=== PATIENT | female | born 1960 | race Caucasian/White ===

== ENCOUNTER 2020-10-27 06:15 | Inpatient (IN) | payer OTHER, SELFPAY ==
[~2020-10-27] VITALS: Ht 154.9 cm; Wt 74.8 kg
[2020-10-27] MEDS ORDERED: ALVIMOPAN 12 MG CAPSULE PO ONE ×2 (06:41→07:00)
[2020-10-27] MEDS ORDERED: cefOXitin 2 GM IVPB PREMIX 50 ML IV ONE (07:00)
[2020-10-27] MEDS ORDERED: PROPOFOL 200MG/ 20ML VIAL (DIPRIVAN) IV ONE (07:32)
[2020-10-27] MEDS ORDERED: ROCURONIUM BROMIDE 10 MG/ML (ZEMURON) IV ONE (07:32)
[2020-10-27] MEDS ORDERED: SUGAMMADEX SODIUM 200 MG/2 ML VIAL IV ONE (07:32)
[2020-10-27] MEDS ORDERED: LR 1,000 ML IV.SOLN IV ONE (07:32)
[2020-10-27] MEDS ORDERED: DESFLURANE 15 MIN GAS INH ONE (07:32)
[2020-10-27] MEDS ORDERED: MIDAZOLAM HCL 5 MG/5 ML VIAL IVP ONE (07:32)
[2020-10-27] MEDS ORDERED: KETOROLAC TROMETHAMINE 30 MG VIAL IVP ONE (07:32)
[2020-10-27] MEDS ORDERED: PHENYLEPHRINE HCL 10 MG/ML VIAL (NEOSYNEPHRINE) IV ONE (07:32)
[2020-10-27] MEDS ORDERED: LIDOCAINE 1% 10 MG/ML, 20 ML MDV INJ ONE (07:32)
[2020-10-27] MEDS ORDERED: BUPIVACAINE /PF 0.25% 30 ML VIAL INJ ONE (07:32)
[2020-10-27] MEDS ORDERED: METOPROLOL TARTRATE 5 MG/5 ML VIAL IVP ONE (07:32)
[2020-10-27] MEDS ORDERED: fentaNYL CITRATE 250 MCG/5 ML AMP IV ONE (07:32)
[2020-10-27] MEDS ORDERED: NS 100 ML BAG IV ONE (07:32)
[2020-10-27] MEDS ORDERED: NS 1000 ML IV.SOLN IV ONE (07:32)
[2020-10-27] MEDS ORDERED: BUPR300T55 PO (08:31)
[2020-10-27] MEDS ORDERED: LOSA100T3 PO (08:31)
[2020-10-27] MEDS ORDERED: NPH,100V2 SQ (08:31)
[2020-10-27] MEDS ORDERED: ACET325T53 PO (08:31)
[2020-10-27] MEDS ORDERED: MULT-1164 PO (08:31)
[2020-10-27] MEDS ORDERED: SSREG SUBCUT (08:32)
[2020-10-27] MEDS ORDERED: ETAN50DI2 SUBCUT (08:32)
[2020-10-27] MEDS ORDERED: CYCL-10 PO (08:32)
[2020-10-27] MEDS ORDERED: LABETALOL 100 MG/ 20ML VIAL IVP PRN (08:45)
[2020-10-27] MEDS ORDERED: METOCLOPRAMIDE HCL 10 MG/2 ML VIAL IVP PRN (08:45)
[2020-10-27] MEDS ORDERED: ONDANSETRON HCL 4 MG/2 ML VIAL IVP PRN (08:45)
[2020-10-27] MEDS: NACL 0.9% 1,000 ML IV SCH ×2 (08:45→17:05)
[2020-10-27] MEDS ORDERED: HYDROmorphone 1 INJ. 1 MG/ML CARTRIDGE IVP PRN ×2 (08:45)
[2020-10-27] MEDS ORDERED: hydrALAZINE HCL 20 MG/ML VIAL IVP PRN (08:45)
[2020-10-27] MEDS ORDERED: MIDAZOLAM HCL 2 MG/2 ML VIAL (VERSED) IVP PRN (08:45)
[2020-10-27] MEDS ORDERED: MEPERIDINE HCL/PF 25 MG/ML DISP.SYRIN IVP PRN (08:45)
[2020-10-27] MEDS ORDERED: BUPIVACAINE LIPOSOME/PF 266 MG/20 ML VIAL INFIL ONE (10:55)
[2020-10-27] MEDS ORDERED: HYDROcodone/ACETAMIN 5-325 MG TAB (NORCO/ VICODIN) PO PRN (11:45)
[2020-10-27] MEDS ORDERED: NALOXONE HCL 0.4 MG/ML AMP (NARCAN) IVP PRN ×3 (11:45)
[2020-10-27] MEDS ORDERED: ACETAMINOPHEN 325 MG TABLET PO PRN (11:45)
[2020-10-27] MEDS: MIDAZOLAM HCL 2 MG/2 ML VIAL (VERSED) ONE ×2 (12:08→12:10)
[2020-10-27 12:24] LABS: HEMATOCRIT 37.7 % (36-48); HEMOGLOBIN 12.4 g/dL (12.0-16.0)
[2020-10-27 12:46] LABS: CREATININE 1.45 mg/dL (0.55-1.30); POTASSIUM 3.7 mmol/L (3.5-5.1)
[2020-10-27 13:07] VITALS: BP_SYST 117
[2020-10-27] MEDS: ONDANSETRON HCL 4 MG/2 ML VIAL IVP PRN ×2 (13:21→21:22)
[2020-10-27] MEDS: D5/0.45 NS 1,000 ML IV SCH ×2 (13:32→22:51)
[2020-10-27 13:37] VITALS: BP_SYST 133
[2020-10-27 16:09] VITALS: BP_SYST 159
[2020-10-27] MEDS: HYDROmorphone 1 INJ. 1 MG/ML CARTRIDGE IVP PRN ×2 (16:23→22:47)
[2020-10-27] MEDS: ALVIMOPAN 12 MG CAPSULE PO SCH (21:00)
[2020-10-27 21:09] VITALS: BP_SYST 162
[2020-10-27] MEDS: cefOXitin SODIUM 2 GM in D5W 100 ML IV SCH (21:15)
[2020-10-27] MEDS: FAMOTIDINE PF 20 MG/2 ML VIAL IVP SCH (21:15)
[2020-10-28] MEDS: INSULIN REGULAR, HUMAN 100 UNITS/ML, 10 ML VIAL (humuLIN R) SUBCUT PRN ×4 (00:56→17:29)
[2020-10-28 01:09] VITALS: BP_SYST 107
[2020-10-28] MEDS: NACL 0.9% 1,000 ML IV SCH ×3 (01:25→14:37)
[2020-10-28] MEDS: ONDANSETRON HCL 4 MG/2 ML VIAL IVP PRN ×3 (05:36→22:37)
[2020-10-28] MEDS: HYDROmorphone 1 INJ. 1 MG/ML CARTRIDGE IVP PRN ×3 (05:37→16:18)
[2020-10-28 06:27] LABS: BASOPHILS % (AUTO) 0.3 % (0.0-2.0); HEMATOCRIT 37.1 % (36-48); LYMPHOCYTES # (AUTO) 1.4 K/uL (1.0-5.5); LYMPHOCYTES % (AUTO) 9.3 % (20.5-51.5); MEAN CORPUSCULAR HEMOGLOBIN 30 pg (27-31); MEAN CORPUSCULAR HGB CONC 33 % (32-36); MEAN CORPUSCULAR VOLUME 92 fL (79.0-98.0); MONOCYTES # (AUTO) 1.3 K/uL (0.0-1.0); MONOCYTES % (AUTO) 8.5 % (1.7-9.3); NEUTROPHILS # (AUTO) 12.5 K/uL (1.8-7.7); NEUTROPHILS % (AUTO) 81.9 % (40.0-70.0); PLATELET COUNT (AUTO) 291 K/uL (130-430); RED BLOOD CELL COUNT(AUTO) 4.03 MIL/uL (4.2-6.2); RED CELL DISTRIBUTION WIDTH 13.2 % (9.0-15.0); WHITE BLOOD COUNT (AUTO) 15.3 K/uL (4.8-10.8)
[2020-10-28 06:37] LABS: CALCIUM 8.1 mg/dL (8.4-11.0); CREATININE 1.18 mg/dL (0.55-1.30); TOTAL BILIRUBIN 0.7 mg/dL (0.0-1.0)
[2020-10-28 08:00] VITALS: BP_SYST 127
[2020-10-28] MEDS: FAMOTIDINE PF 20 MG/2 ML VIAL IVP SCH ×2 (08:44→21:50)
[2020-10-28] MEDS: cefOXitin SODIUM 2 GM in D5W 100 ML IV SCH (08:44)
[2020-10-28] MEDS: ENOXAPARIN SODIUM 30 MG/0.3 ML SYRINGE SUBCUT SCH (08:48)
[2020-10-28] MEDS: D5/0.45 NS 1,000 ML IV SCH ×2 (08:49→21:50)
[2020-10-28] MEDS: ALVIMOPAN 12 MG CAPSULE PO SCH ×2 (09:26→21:49)
[2020-10-28 12:10] VITALS: BP_SYST 111
[2020-10-28 16:10] VITALS: BP_SYST 132
[2020-10-28] MEDS: METOCLOPRAMIDE HCL 10 MG/2 ML VIAL IVP SCH (17:26)
[2020-10-28 20:00] VITALS: BP_SYST 120
[2020-10-28] MEDS: HYDROcodone/ACETAMIN 5-325 MG TAB (NORCO/ VICODIN) PO PRN (22:37)
[2020-10-29] MEDS: METOCLOPRAMIDE HCL 10 MG/2 ML VIAL IVP SCH ×4 (00:11→17:10)
[2020-10-29] MEDS: INSULIN REGULAR, HUMAN 100 UNITS/ML, 10 ML VIAL (humuLIN R) SUBCUT PRN ×4 (00:15→18:04)
[2020-10-29 00:25] VITALS: BP_SYST 123
[2020-10-29] MEDS: NACL 0.9% 1,000 ML IV SCH ×2 (02:25→10:45)
[2020-10-29 07:58] VITALS: BP_SYST 114
[2020-10-29] MEDS: ALVIMOPAN 12 MG CAPSULE PO SCH (08:43)
[2020-10-29] MEDS: FAMOTIDINE PF 20 MG/2 ML VIAL IVP SCH (08:43)
[2020-10-29] MEDS: HYDROcodone/ACETAMIN 5-325 MG TAB (NORCO/ VICODIN) PO PRN ×2 (08:44→18:01)
[2020-10-29] MEDS: ENOXAPARIN SODIUM 30 MG/0.3 ML SYRINGE SUBCUT SCH (08:47)
[2020-10-29] MEDS: D5/0.45 NS 1,000 ML IV SCH (11:38)
[2020-10-29 12:06] VITALS: BP_SYST 143
[2020-10-29 16:06] VITALS: BP_SYST 140
[2020-10-29 17:32] VITALS: BP_SYST 110
== END 2020-10-29 18:46 | disposition home or self-care (01) | DRG 330 ==
LOC: SMU 06:15 → EDSTATUS 07:30 → SMU 08:46
PROVIDERS: ADMIT Colon & Rectal Surgery; ATTEND Colon & Rectal Surgery
PROC: 0DNN4ZZ Release Sigmoid Colon, Percutaneous Endoscopic Approach (ICD-10-PCS; 2020-10-27)
PROC: 0DNU0ZZ Release Omentum, Open Approach (ICD-10-PCS; 2020-10-27)
PROC: 0DJD4ZZ Inspection of Lower Intestinal Tract, Percutaneous Endoscopic Approach (ICD-10-PCS; 2020-10-27)
PROC: 0DNL4ZZ Release Transverse Colon, Percutaneous Endoscopic Approach (ICD-10-PCS; 2020-10-27)
PROC: 0DBP4ZZ Excision of Rectum, Percutaneous Endoscopic Approach (ICD-10-PCS; 2020-10-27)
PROC: 3E0T3BZ Introduction of Anesthetic Agent into Peripheral Nerves and Plexi, Percutaneous Approach (ICD-10-PCS; 2020-10-27)
PROC: 0DBN4ZZ Excision of Sigmoid Colon, Percutaneous Endoscopic Approach (ICD-10-PCS; principal; 2020-10-27 07:30)
DX: N82.3 Fistula of vagina to large intestine (principal); E44.1 Mild protein-calorie malnutrition; N18.30 Chronic kidney disease, stage 3 unspecified; E11.22 Type 2 diabetes mellitus with diabetic chronic kidney disease; Z20.822 Contact with and (suspected) exposure to COVID-19; I12.9 Hypertensive chronic kidney disease with stage 1 through stage 4 chronic kidney disease, or unspecified chronic kidney disease; K66.0 Peritoneal adhesions (postprocedural) (postinfection); Z68.31 Body mass index [BMI] 31.0-31.9, adult
CPT/HCPCS: 36415; 80048; 80053; 82948; 82962; 85018-TC; 85025; 86886; 86900; 86901; 87081; 88307; 97116-GP; 97530-GP; C1727; C9290; C9399; J0694; J1170; J1650; J1815; J1885; J2001; J2250; J2370; J2405; J2704; J2765; J3010; J3465; J3490; J7030; J7060; J7120; U0003

== ENCOUNTER 2020-11-12 10:14 | Emergency (ER) | payer OTHER, SELFPAY ==
[~2020-11-12] VITALS: Ht 154.9 cm; Wt 74.8 kg
[~2020-11-12 10:14] MED LIST: ACET325T53 PO; BUPR300T55 PO; CYCL-10 PO; ETAN50DI2 SUBCUT; LOSA100T3 PO; MULT-1164 PO; NPH,100V2 SQ; SSREG SUBCUT
[2020-11-12 10:15] VITALS: BP_SYST 166
[2020-11-12] MEDS ORDERED: ONDANSETRON HCL 4 MG/2 ML VIAL IVP ONE (11:00)
[2020-11-12] MEDS ORDERED: NACL 0.9% 1,000 ML IV ONE ×2 (11:00→12:30)
[2020-11-12 11:19] LABS: BASOPHILS % (AUTO) 0.3 % (0.0-2.0); EOSINOPHILS % (AUTO) 0.4 % (0.0-4.0); HEMATOCRIT 40.4 % (36-48); HEMOGLOBIN 13.7 g/dL (12.0-16.0); LYMPHOCYTES # (AUTO) 1.1 K/uL (1.0-5.5); LYMPHOCYTES % (AUTO) 8.4 % (20.5-51.5); MEAN CORPUSCULAR HEMOGLOBIN 30 pg (27-31); MEAN CORPUSCULAR HGB CONC 34 % (32-36); MEAN CORPUSCULAR VOLUME 89 fL (79.0-98.0); MONOCYTES # (AUTO) 0.3 K/uL (0.0-1.0); NEUTROPHILS # (AUTO) 11.2 K/uL (1.8-7.7); NEUTROPHILS % (AUTO) 88.9 % (40.0-70.0); PLATELET COUNT (AUTO) 534 K/uL (130-430); RED BLOOD CELL COUNT(AUTO) 4.54 MIL/uL (4.2-6.2); RED CELL DISTRIBUTION WIDTH 13.1 % (9.0-15.0); WHITE BLOOD COUNT (AUTO) 12.6 K/uL (4.8-10.8)
[2020-11-12 11:37] LABS: CALCIUM 9.9 mg/dL (8.4-11.0); CREATININE 1.15 mg/dL (0.55-1.30); POTASSIUM 3.7 mmol/L (3.5-5.1)
[2020-11-12 11:50] LABS: ALBUMIN 3.8 g/dL (3.4-4.8); TOTAL BILIRUBIN 0.6 mg/dL (0.0-1.0)
[2020-11-12 12:13] LABS: PROTHROMBIN TIME 10.5 SECS (9.5-12.5)
[2020-11-12 12:22] LABS: BILIRUBIN,URINE NEGATIVE (NEGATIVE); BLOOD, URINE NEGATIVE (NEGATIVE); CLARITY/URINE CLEAR (CLEAR); COLOR,URINE YELLOW (YELLOW); GLUCOSE,URINE 3+ (NEGATIVE); KETONES,URINE 1+ (NEGATIVE); LEUKOCYTE ESTERASE ,URINE NEGATIVE (NEGATIVE); NITRITE, URINE NEGATIVE (NEGATIVE); PH,URINE 8.5 (5.0-8.0); PROTEIN URINE NEGATIVE (NEGATIVE); UROBILINOGEN,URINE 0.2 (0.2-1.0)
[2020-11-12] MEDS ORDERED: VANCOMYCIN HCL 1,000 MG in NS 250 ML IV ONE (12:30)
[2020-11-12] MEDS ORDERED: MORPHINE 2 MG/ML INJ. SYRINGE IVP ONE (12:45)
[2020-11-12] MEDS ORDERED: VANCOMYCIN HCL 1000 MG/VIAL IV ONE (13:29)
[2020-11-12] MEDS ORDERED: LEVO750T45 PO (14:28)
[2020-11-12] MEDS ORDERED: POLY17PO4 PO (14:28)
[2020-11-12 14:40] VITALS: BP_SYST 154
== END 2020-11-12 14:40 | disposition home or self-care (01) ==
LOC: SED 10:14
DX: K59.00 Constipation, unspecified (principal); Z79.899 Other long term (current) drug therapy; Z79.4 Long term (current) use of insulin; Z88.1 Allergy status to other antibiotic agents
CPT/HCPCS: 36415; 71045; 74176; 76376; 80053; 81003; 83690; 84484; 85025; 85610; 85730; 87040; 87086; 93005; 96361; 96365; 96375; 99285; J2270; J2405; J3370; J7030

== ENCOUNTER 2020-11-14 05:36 | Inpatient (IN) | payer OTHER ==
[~2020-11-14] VITALS: Ht 152.4 cm; Wt 73.0 kg
[~2020-11-14 05:36] MED LIST changes: +LEVO750T45 PO; +POLY17PO4 PO
[2020-11-14 05:50] VITALS: BP_SYST 135
[2020-11-14] MEDS ORDERED: NACL 0.9% 1,000 ML IV ONE ×2 (06:00→07:30)
[2020-11-14] MEDS ORDERED: ONDANSETRON HCL 4 MG/2 ML VIAL IVP ONE (06:00)
[2020-11-14] MEDS ORDERED: MORPHINE 4 MG INJ. 4 MG/ML VIAL IVP ONE (06:00)
[2020-11-14 06:35] LABS: CALCIUM 8.4 mg/dL (8.4-11.0); CREATININE 0.98 mg/dL (0.55-1.30)
[2020-11-14 06:39] LABS: BASOPHILS % (AUTO) 0.1 % (0.0-2.0); EOSINOPHILS % (AUTO) 0.1 % (0.0-4.0); HEMATOCRIT 38.4 % (36-48); HEMOGLOBIN 12.9 g/dL (12.0-16.0); LYMPHOCYTES # (AUTO) 1.7 K/uL (1.0-5.5); LYMPHOCYTES % (AUTO) 11.5 % (20.5-51.5); MEAN CORPUSCULAR HEMOGLOBIN 30 pg (27-31); MEAN CORPUSCULAR HGB CONC 34 % (32-36); MEAN CORPUSCULAR VOLUME 88 fL (79.0-98.0); MONOCYTES # (AUTO) 0.8 K/uL (0.0-1.0); MONOCYTES % (AUTO) 5.5 % (1.7-9.3); NEUTROPHILS # (AUTO) 12.3 K/uL (1.8-7.7); NEUTROPHILS % (AUTO) 82.8 % (40.0-70.0); PLATELET COUNT (AUTO) 447 K/uL (130-430); RED BLOOD CELL COUNT(AUTO) 4.35 MIL/uL (4.2-6.2); RED CELL DISTRIBUTION WIDTH 13.1 % (9.0-15.0); WHITE BLOOD COUNT (AUTO) 14.8 K/uL (4.8-10.8)
[2020-11-14 06:40] LABS: ALBUMIN 3.3 g/dL (3.4-4.8); TOTAL BILIRUBIN 0.8 mg/dL (0.0-1.0)
[2020-11-14] MEDS ORDERED: PIPERACILLIN/TAZO 3.375 GM in NS 50 ML IV ONE (06:45)
[2020-11-14] MEDS ORDERED: MAGNESIUM SULFATE 50 ML IV ONE (06:45)
[2020-11-14] MEDS ORDERED: KCL 20 mEq in 100 mL (PREMIX) 100 ML IV ONE ×2 (06:45→07:04)
[2020-11-14] MEDS ORDERED: PIPERACILLIN/TAZOBACTAM 3.375 GM/VIAL (ZOSYN) IV ONE (07:05)
[2020-11-14] MEDS ORDERED: D5NS 500 ML IV ONE (07:30)
[2020-11-14] MEDS ORDERED: MORPHINE 4 MG INJ. 4 MG/ML VIAL IVP PRN (07:45)
[2020-11-14] MEDS ORDERED: DEXTROSE 50% JECT 50 ML DISP.SYRIN IVP PRN (07:45)
[2020-11-14] MEDS ORDERED: METOCLOPRAMIDE HCL 10 MG/2 ML VIAL IVP PRN (07:45)
[2020-11-14] MEDS ORDERED: ONDANSETRON HCL 4 MG/2 ML VIAL IVP PRN (07:45)
[2020-11-14] MEDS ORDERED: hydrALAZINE HCL 20 MG/ML VIAL IVP PRN (07:45)
[2020-11-14] MEDS ORDERED: ACETAMINOPHEN 325 MG TABLET PO PRN (07:45)
[2020-11-14] MEDS ORDERED: MORPHINE 2 MG/ML INJ. SYRINGE IVP PRN (07:45)
[2020-11-14 08:00] VITALS: BP_SYST 156
[2020-11-14] MEDS: buPROPion HCL 150 MG XL TAB PO SCH (09:57)
[2020-11-14] MEDS: LOSARTAN POTASSIUM 50 MG TABLET (COZAAR) PO SCH (09:58)
[2020-11-14] MEDS ORDERED: MAGNESIUM CITRATE 300 ML ORAL SOLUTION NG ONE (10:15)
[2020-11-14 10:59] LABS: BILIRUBIN,URINE NEGATIVE (NEGATIVE); BLOOD, URINE NEGATIVE (NEGATIVE); CLARITY/URINE CLEAR (CLEAR); COLOR,URINE YELLOW (YELLOW); GLUCOSE,URINE 1+ (NEGATIVE); KETONES,URINE 1+ (NEGATIVE); LEUKOCYTE ESTERASE ,URINE NEGATIVE (NEGATIVE); NITRITE, URINE NEGATIVE (NEGATIVE); PH,URINE 7.5 (5.0-8.0); PROTEIN URINE NEGATIVE (NEGATIVE); UROBILINOGEN,URINE 0.2 (0.2-1.0)
[2020-11-14] MEDS ORDERED: POTASSIUM CHLORIDE 40 MEQ in NS 250 ML IV ONE (11:00)
[2020-11-14 11:22] LABS: RBC,URINE 0-3 /HPF (0-3); WBC,URINE 0-3 /HPF (0-3)
[2020-11-14 11:23] LABS: BACTERIA,URINE FEW /HPF (None Seen); MUCUS,URINE 1+ /LPF (None Seen)
[2020-11-14 11:25] VITALS: BP_SYST 136
[2020-11-14] MEDS: PIPERACILLIN/TAZO 3.375/DEX-IS 50 ML IV SCH ×2 (11:58→17:09)
[2020-11-14] MEDS: METOCLOPRAMIDE HCL 10 MG/2 ML VIAL IVP SCH ×2 (11:58→17:08)
[2020-11-14] MEDS: INSULIN REGULAR, HUMAN 100 UNITS/ML, 10 ML VIAL (humuLIN R) SUBCUT PRN ×2 (12:07→17:14)
[2020-11-14 15:18] VITALS: BP_SYST 144
[2020-11-14] MEDS ORDERED: MAGNESIUM CITRATE 300 ML ORAL SOLUTION PO ONE (19:45)
[2020-11-14 20:00] VITALS: BP_SYST 142
[2020-11-14] MEDS ORDERED: KCL 20 mEq in D5/0.45NS 1000mL 1,000 ML IV ONE (20:33)
[2020-11-14] MEDS: FAMOTIDINE PF 20 MG/2 ML VIAL IVP SCH (20:58)
[2020-11-14] MEDS: KCL 20 mEq in D5/0.45NS 1000mL 1,000 ML IV SCH (20:58)
[2020-11-14 23:59] VITALS: BP_SYST 158
[2020-11-15] MEDS: INSULIN REGULAR, HUMAN 100 UNITS/ML, 10 ML VIAL (humuLIN R) SUBCUT PRN ×3 (00:05→13:02)
[2020-11-15] MEDS: METOCLOPRAMIDE HCL 10 MG/2 ML VIAL IVP SCH ×4 (05:20→17:33)
[2020-11-15] MEDS: PIPERACILLIN/TAZO 3.375/DEX-IS 50 ML IV SCH ×4 (05:26→17:06)
[2020-11-15 07:54] VITALS: BP_SYST 125
[2020-11-15 08:00] VITALS: BP_SYST 125
[2020-11-15 08:06] LABS: ALBUMIN 2.9 g/dL (3.4-4.8); CALCIUM 8.1 mg/dL (8.4-11.0); CREATININE 0.95 mg/dL (0.55-1.30); POTASSIUM 3.2 mmol/L (3.5-5.1); TOTAL BILIRUBIN 0.7 mg/dL (0.0-1.0)
[2020-11-15 08:20] LABS: BASOPHILS # (AUTO) 0.1 K/uL (0.0-0.2); BASOPHILS % (AUTO) 0.6 % (0.0-2.0); EOSINOPHILS # (AUTO) 0.1 K/uL (0.0-0.4); EOSINOPHILS % (AUTO) 0.4 % (0.0-4.0); HEMATOCRIT 39.1 % (36-48); HEMOGLOBIN 12.8 g/dL (12.0-16.0); LYMPHOCYTES # (AUTO) 1.3 K/uL (1.0-5.5); LYMPHOCYTES % (AUTO) 7.5 % (20.5-51.5); MEAN CORPUSCULAR HEMOGLOBIN 29 pg (27-31); MEAN CORPUSCULAR HGB CONC 33 % (32-36); MEAN CORPUSCULAR VOLUME 89 fL (79.0-98.0); MONOCYTES # (AUTO) 1.2 K/uL (0.0-1.0); MONOCYTES % (AUTO) 6.5 % (1.7-9.3); NEUTROPHILS # (AUTO) 15.3 K/uL (1.8-7.7); PLATELET COUNT (AUTO) 441 K/uL (130-430); RED BLOOD CELL COUNT(AUTO) 4.38 MIL/uL (4.2-6.2); RED CELL DISTRIBUTION WIDTH 13.1 % (9.0-15.0)
[2020-11-15] MEDS: buPROPion HCL 150 MG XL TAB PO SCH (09:55)
[2020-11-15] MEDS: FAMOTIDINE PF 20 MG/2 ML VIAL IVP SCH ×2 (09:55→20:44)
[2020-11-15] MEDS: LOSARTAN POTASSIUM 50 MG TABLET (COZAAR) PO SCH (09:56)
[2020-11-15] MEDS: KCL 20 mEq in D5/0.45NS 1000mL 1,000 ML IV SCH ×2 (10:11→16:48)
[2020-11-15 12:11] VITALS: BP_SYST 131
[2020-11-15] MEDS ORDERED: LIDOCAINE 1% 10 MG/ML, 20 ML MDV SUBCUT ONE (14:15)
[2020-11-15] MEDS ORDERED: GOLYTELY / COLYTE SOLUTION 4 LITERS PO ONE (14:15)
[2020-11-15 16:09] VITALS: BP_SYST 125
[2020-11-15] MEDS ORDERED: POTASSIUM CHLORIDE 40 MEQ in NS 250 ML IV ONE (17:00)
[2020-11-16 00:06] VITALS: BP_SYST 138
[2020-11-16] MEDS: INSULIN REGULAR, HUMAN 100 UNITS/ML, 10 ML VIAL (humuLIN R) SUBCUT PRN ×5 (02:05→23:38)
[2020-11-16] MEDS: KCL 20 mEq in D5/0.45NS 1000mL 1,000 ML IV SCH ×3 (03:20→23:41)
[2020-11-16] MEDS: PIPERACILLIN/TAZO 3.375/DEX-IS 50 ML IV SCH ×5 (06:33→23:33)
[2020-11-16] MEDS: METOCLOPRAMIDE HCL 10 MG/2 ML VIAL IVP SCH ×5 (06:34→23:34)
[2020-11-16 06:46] LABS: BASOPHILS # (AUTO) 0.1 K/uL (0.0-0.2); BASOPHILS % (AUTO) 0.9 % (0.0-2.0); EOSINOPHILS # (AUTO) 0.2 K/uL (0.0-0.4); HEMATOCRIT 40.2 % (36-48); HEMOGLOBIN 13.1 g/dL (12.0-16.0); LYMPHOCYTES # (AUTO) 1.8 K/uL (1.0-5.5); MEAN CORPUSCULAR HEMOGLOBIN 29 pg (27-31); MEAN CORPUSCULAR HGB CONC 33 % (32-36); MEAN CORPUSCULAR VOLUME 90 fL (79.0-98.0); MONOCYTES # (AUTO) 0.9 K/uL (0.0-1.0); MONOCYTES % (AUTO) 5.7 % (1.7-9.3); NEUTROPHILS # (AUTO) 13.1 K/uL (1.8-7.7); NEUTROPHILS % (AUTO) 81.4 % (40.0-70.0); PLATELET COUNT (AUTO) 400 K/uL (130-430); RED BLOOD CELL COUNT(AUTO) 4.46 MIL/uL (4.2-6.2); RED CELL DISTRIBUTION WIDTH 13.2 % (9.0-15.0); WHITE BLOOD COUNT (AUTO) 16.1 K/uL (4.8-10.8)
[2020-11-16 07:09] LABS: ALBUMIN 3.1 g/dL (3.4-4.8); CALCIUM 8.8 mg/dL (8.4-11.0); CREATININE 1.01 mg/dL (0.55-1.30); POTASSIUM 3.8 mmol/L (3.5-5.1); TOTAL BILIRUBIN 0.9 mg/dL (0.0-1.0)
[2020-11-16 08:00] VITALS: BP_SYST 131
[2020-11-16] MEDS: FAMOTIDINE PF 20 MG/2 ML VIAL IVP SCH ×2 (10:27→20:12)
[2020-11-16] MEDS: buPROPion HCL 150 MG XL TAB PO SCH (10:27)
[2020-11-16] MEDS: LOSARTAN POTASSIUM 50 MG TABLET (COZAAR) PO SCH (10:28)
[2020-11-16 12:13] VITALS: BP_SYST 139
[2020-11-16] MEDS ORDERED: GOLYTELY / COLYTE SOLUTION 4 LITERS NG ONE (14:00)
[2020-11-16 15:00] LABS: PROTHROMBIN TIME 10.7 SECS (9.5-12.5)
[2020-11-16 16:08] VITALS: BP_SYST 140
[2020-11-16 20:00] VITALS: BP_SYST 138
[2020-11-17 00:25] VITALS: BP_SYST 135
[2020-11-17] MEDS: INSULIN REGULAR, HUMAN 100 UNITS/ML, 10 ML VIAL (humuLIN R) SUBCUT PRN ×2 (05:40→12:04)
[2020-11-17] MEDS: METOCLOPRAMIDE HCL 10 MG/2 ML VIAL IVP SCH ×2 (05:42→11:57)
[2020-11-17] MEDS: PIPERACILLIN/TAZO 3.375/DEX-IS 50 ML IV SCH ×2 (05:43→11:57)
[2020-11-17 08:00] VITALS: BP_SYST 129
[2020-11-17] MEDS ORDERED: MEPERIDINE 100 MG INJ. 100 MG/ML VIAL ONE (08:13)
[2020-11-17] MEDS ORDERED: MIDAZOLAM HCL 5 MG/5 ML VIAL ONE (08:13)
[2020-11-17] MEDS ORDERED: GLYCOPYRROLATE 0.2 MG/ML VIAL ONE (08:14)
[2020-11-17] MEDS: FAMOTIDINE PF 20 MG/2 ML VIAL IVP SCH (09:00)
[2020-11-17] MEDS: LOSARTAN POTASSIUM 50 MG TABLET (COZAAR) PO SCH (09:00)
[2020-11-17] MEDS: buPROPion HCL 150 MG XL TAB PO SCH (09:00)
[2020-11-17] MEDS ORDERED: SIMETHICONE 40 MG/0.6 ML ML ONE (09:20)
[2020-11-17 12:00] VITALS: BP_SYST 139
[2020-11-17 14:11] VITALS: BP_SYST 139
== END 2020-11-17 14:30 | disposition home or self-care (01) | DRG 392 ==
LOC: SED 05:36 → STU 07:16 → SMU 11-15 15:14
PROVIDERS: ADMIT Internal Medicine Hospice and Palliative Medicine; ATTEND Internal Medicine Hospice and Palliative Medicine
PROC: 0DBP8ZX Excision of Rectum, Via Natural or Artificial Opening Endoscopic, Diagnostic (ICD-10-PCS; principal; 2020-11-17 09:15)
DX: K59.00 Constipation, unspecified (principal); E11.9 Type 2 diabetes mellitus without complications; R94.31 Abnormal electrocardiogram [ECG] [EKG]; E87.6 Hypokalemia; K62.1 Rectal polyp; I10 Essential (primary) hypertension; M06.9 Rheumatoid arthritis, unspecified; Z20.822 Contact with and (suspected) exposure to COVID-19; Z88.8 Allergy status to other drugs, medicaments and biological substances; Z91.040 Latex allergy status; Z79.2 Long term (current) use of antibiotics; Z79.899 Other long term (current) drug therapy
CPT/HCPCS: 36415; 71045; 74021; 80053; 81000; 82962; 83036; 83690; 84132; 84484; 85025; 85610-TC; 87070-TC; 87081; 87086; 88305; 96361; 96365; 96366; 96367; 96368; 96375; 97116-GP; 99285; G0378; J1815; J2175; J2250; J2270; J2405; J2543; J2765; J3475; J3480; J3490; J7030; J7050

== ENCOUNTER 2023-12-20 07:22 | Day surgery (SDC) | payer OTHER ==
[~2023-12-20] VITALS: Ht 154.9 cm; Wt 75.3 kg
[~2023-12-20 07:22] MED LIST changes: -CYCL-10 PO; -ETAN50DI2 SUBCUT; +ETAN50SY SUBCUT; -LEVO750T45 PO; +LEVO750T64 PO; +LOSA-415 PO; -LOSA100T3 PO; -POLY17PO4 PO
[2023-12-20] MEDS ORDERED: MIDAZOLAM HCL 5 MG/5 ML VIAL ONE (07:49)
[2023-12-20] MEDS ORDERED: MEPERIDINE 100 MG INJ. 100 MG/ML VIAL ONE (07:49)
[2023-12-20] MEDS ORDERED: SIMETHICONE 40 MG/0.6 ML ML ONE (07:49)
[2023-12-20] MEDS ORDERED: ONDANSETRON HCL 4 MG/2 ML VIAL ONE (10:04)
[2023-12-20 10:15] VITALS: O2SAT 97
[2023-12-20 12:14] VITALS: BP_SYST 155; PULSE 68; RESP 18
== END 2023-12-20 11:15 | disposition home or self-care (01) ==
LOC: SDS 07:22 → SMU 07:28 → SDS 11:15
PROVIDERS: ATTEND Internal Medicine
DX: Z12.11 Encounter for screening for malignant neoplasm of colon (principal); K57.30 Diverticulosis of large intestine without perforation or abscess without bleeding; K64.8 Other hemorrhoids; I10 Essential (primary) hypertension; E11.9 Type 2 diabetes mellitus without complications; E78.5 Hyperlipidemia, unspecified; G47.30 Sleep apnea, unspecified; M19.90 Unspecified osteoarthritis, unspecified site; Z88.8 Allergy status to other drugs, medicaments and biological substances; M06.9 Rheumatoid arthritis, unspecified; Z85.038 Personal history of other malignant neoplasm of large intestine; Z90.49 Acquired absence of other specified parts of digestive tract; Z79.899 Other long term (current) drug therapy; Z85.44 Personal history of malignant neoplasm of other female genital organs; Z80.0 Family history of malignant neoplasm of digestive organs
CPT/HCPCS: 45380; 45385; 99152; 82948; 88305; G0378; J2250; J2405; J2175